=== PATIENT | female | born 1980 | race Caucasian/White ===

== ENCOUNTER → 2018-01-27 | Outpatient (CLI) | payer BC | LOC: COL.RAD 08:03 | DX: K80.20 Calculus of gallbladder without cholecystitis without obstruction (principal) ==

== ENCOUNTER 2018-02-05 11:27 | Day surgery (SDC) | payer BC ==
[~2018-02-05] VITALS: Ht 157.5 cm; Wt 130.5 kg
[2018-02-05 12:19] VITALS: BP 146/103; PULSE 78; TEMP 97.7
[2018-02-05] MEDS ORDERED: MULTI VITAMINS1 TAB PO (12:30)
[2018-02-05] MEDS ORDERED: VITAMIN D31000 I1 PO (12:30)
[2018-02-05] MEDS ORDERED: COLACE 100100 MG/CAP PO (15:51)
[2018-02-05] MEDS ORDERED: NORCO 325 MG-51 TAB PO ×2 (15:51→15:53)
[2018-02-05] MEDS ORDERED: MOTRIN 600600 MG/TAB PO ×2 (15:51→15:53)
[2018-02-05 17:00] VITALS: BP 119/62; PULSE 68; TEMP 98
[2018-02-05 17:15] VITALS: BP 130/65; PULSE 102
[2018-02-05 17:30] VITALS: BP 120/50; PULSE 97
[2018-02-05 17:45] VITALS: BP 119/63; PULSE 86
[2018-02-05 19:44] VITALS: BP 142/59; PULSE 95; TEMP 98.4
== END 2018-02-05 20:00 | disposition home or self-care (01) ==
LOC: SDCO 11:27 → JCC 17:56 → SDCO 20:00
DX: K80.10 Calculus of gallbladder with chronic cholecystitis without obstruction (principal); E66.01 Morbid (severe) obesity due to excess calories; Z68.43 Body mass index [BMI] 50.0-59.9, adult; Z79.899 Other long term (current) drug therapy
CPT/HCPCS: OP; J0360; J1100; J1170; J2405; J2704; J2710; J3010; J7120